=== PATIENT | female | born 1970 | race Caucasian/White ===

== ENCOUNTER 2017-03-04 10:57 | Day surgery (SDC) | payer BC, OTHER ==
--- NOTE | 2017-03-04 08:06 | HP ---
HISTORY AND PHYSICAL Date of 1970. CHIEF COMPLAINT: Left shoulder pain and stiffness. 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 It started after she suffered a left-sided cerebral vascular accident in October of 2016. She is having a difficult time raising her arm overhead. She is having significant pain and night symptoms. She has a history of right shoulder adhesive capsulitis that responded well to manipulation under anesthesia in June of this year. PAST MEDICAL HISTORY: Significant for type 2 diabetes, hypertension, and left-sided CVA. PAST SURGICAL HISTORY: Significant for tubal ligation, but tonsillectomy and previous right shoulder manipulation. CURRENT MEDICATIONS: Aspirin, Crestor, lisinopril, Neurontin, Norvasc, Zetia. ALLERGIES: SHE HAS ALLERGIES TO LIPITOR. FAMILY HISTORY: Significant for cancer and diabetes along with hypertension. SOCIAL HISTORY: Significant for previous tobacco use however she quit in October of this year. REVIEW OF SYSTEMS: Sixteen point review of systems otherwise reviewed and is noncontributory. PHYSICAL EXAMINATION: On examination, the patient is approximately 5 foot 6, 191 pounds of mesomorphic habitus. HEENT exam is nonfocal. Neck is supple. Active motion left shoulder. Forward elevation 85 degrees, external rotation with arm at side -10 degrees, internal rotation to the buttock passively forward elevate her to 95 degrees. Motor strength is 5 minus over 5 for abduction and external rotation. Neer sign is positive. Her distal neurovascular appears intact otherwise in the left upper extremity. X-rays of the left shoulder the office show maintained humeral head to acromial distance. IMPRESSION: 1. Left shoulder adhesive capsulitis. 2. Oko-[id number] diabetes. 3. History of left-sided cerebrovascular accident. RECOMMENDATIONS: I talked to the patient at length regarding her options. At this point, she is quite symptomatic. We will plan to proceed with manipulation under anesthesia with subacromial cortisone injection. We will have her start her formal therapy directly after the procedure. Risks and benefits were discussed at length in layman's terms. MMODL / IJN: [id number] /
[2017-03-04 11:34] LABS: Glucose,Whole Blood 139 mg/dL (75-99)
[2017-03-04] MEDS ORDERED: LACTATED RINGERS 1,000 ML IV ONE (11:34)
[2017-03-04] MEDS ORDERED: DEXAMETHASONE SOD PHOS (MDV) 100 MG/10 ML VIAL IV ONE (11:34)
[2017-03-04] MEDS ORDERED: LIDOCAINE 1% 20 ML VIAL (10MG/ML) FOR IV START INTRADERMA ONE (11:35)
[2017-03-04] MEDS ORDERED: ONDANSETRON 4 MG/2 ML VIAL IVP ONE (11:35)
[2017-03-04] MEDS ORDERED: PROPOFOL 10 MG/ML 20 ML VIAL IV ONE (12:34)
[2017-03-04] MEDS ORDERED: fentaNYL (PF) 50 MCG/ML 2 ML AMP ONE (12:34)
[2017-03-04] MEDS ORDERED: methylPREDNISolone ACETATE 80 MG/ML 1 ML VIAL INTRABURSA ONE (12:43)
[2017-03-04] MEDS ORDERED: BUPIVACAINE (PF) 0.25% 30 ML VIAL MISCELLANE ONE (12:44)
--- NOTE | 2017-03-04 12:46 | P.OP ---
Date of Procedure: 03/04/17 Preoperative Diagnosis: Left shoulder adhesive capsulitis Postoperative Diagnosis: Same Procedure(s) Performed: Left shoulder manipulation under anesthesia with subacromial cortisone injection Anesthesia: MAC Surgeon: Lonnie Estevez Estimated Blood Loss (ml): 0 Pathology: none sent Condition: stable Disposition: PACU Indications for Procedure: The patient's a 46-year-old female who presents with progressive left shoulder pain and stiffness after sustaining a stroke approximately 3 months ago. Clinically she is noted of evidence of adhesive capsulitis. A discussion of the risks and benefits of manipulation under anesthesia with subacromial cortisone injection was made with the patient. She opted to proceed. Risks of this procedure to include fracture, dislocation, possible tendon rerupture, possible recurrence of stiffness and need for subsequent procedures was discussed. Informed consent was obtained. Operative Findings: Significant adhesions Description of Procedure: The patient was brought to the recovery room, and after induction of IV sedation the left shoulder was then gently manipulated. First with her arm at her side is able to obtain full external rotation. Moderate adhesions were encountered. I then obtained full forward elevation. Again there were moderate adhesions. I felt there was adequate advent of passive motion at this point. The left posterior shoulder was prepped with ChloraPrep. 80 mg of Depo-Medrol along with 5 mL of 1/4% plain Marcaine was injected into the subacromial space. The patient was monitored until fully awake. No complications were incurred. There was no blood loss.
[2017-03-04 12:54] VITALS: TEMP 98
[2017-03-04] MEDS: HYDROmorphone 1 MG/ML 1 ML SYRINGE IVP ONE ×4 (12:55→13:25)
[2017-03-04] MEDS ORDERED: KETOROLAC 30 MG/ML 1 ML VIAL IVP ONE (13:05)
[2017-03-04 13:43] LABS: Glucose,Whole Blood 164 mg/dL (75-99)
[2017-03-04 13:56] VITALS: RESP 18
[2017-03-04 14:21] VITALS: BP 147/90; PULSE 86
== END 2017-03-04 14:35 | disposition home or self-care (01) ==
LOC: OR 10:57
PROVIDERS: ATTEND Orthopaedic Surgery
DX: M75.02 Adhesive capsulitis of left shoulder (principal); I69.854 Hemiplegia and hemiparesis following other cerebrovascular disease affecting left non-dominant side; I10 Essential (primary) hypertension; Z87.891 Personal history of nicotine dependence; E78.5 Hyperlipidemia, unspecified; E11.9 Type 2 diabetes mellitus without complications; Z79.4 Long term (current) use of insulin; M19.90 Unspecified osteoarthritis, unspecified site; Z79.82 Long term (current) use of aspirin; Z79.899 Other long term (current) drug therapy; Z88.8 Allergy status to other drugs, medicaments and biological substances
CPT/HCPCS: 20610; 23700; 84703; J1040; J2405; J3010; J1885; J1170; J1100; J2704

== ENCOUNTER → 2018-04-29 | Outpatient (CLI) | payer BC ==
--- NOTE | 2018-04-29 23:22 | MR ---
MR scan of the brain. History bilateral leg weakness. Falls. Comparison none. Technique Multiplanar multiecho imaging of the brain was performed with no contrast. FINDINGS: Ventricles have normal size. There is no mass effect nor midline shift. There is no sign of intracran ial hemorrhage. There are scattered areas of increased signal in the white matter of both cerebral he mispheres on the T2 and FLAIR images. Total numbers less than 10. These measure up to [address] is in the white matter right temporal lobe. There is no significant white matter signal abnormalit y adjacent to the ventricles. There is no evidence of a posterior fossa mass. There is 3 mm area of f ocal increased signal in the right side of the marck. Corpus callosum is intact. Sella turcica is inta ct. IMPRESSION: Scattered white matter signal changes probably due to microvascular ischemia. No evidence of cortical infarct.
== END | disposition home or self-care (01) ==
LOC: RADMRIMAIN 19:31
PROVIDERS: ATTEND Psychiatry & Neurology Neurology
DX: R90.89 Other abnormal findings on diagnostic imaging of central nervous system (principal); R29.898 Other symptoms and signs involving the musculoskeletal system; M47.812 Spondylosis without myelopathy or radiculopathy, cervical region; R29.6 Repeated falls; Z86.73 Personal history of transient ischemic attack (TIA), and cerebral infarction without residual deficits
CPT/HCPCS: 70551

== ENCOUNTER → 2021-08-30 | Outpatient (CLI) | payer BC ==
--- NOTE | 2021-09-03 12:20 | MM ---
Reason for Exam: Screening (asymptomatic). Last screening mammogram was performed 12 month(s) ago. Patient History: Menarche at age 15. First Full-Term at age 21. Hormonal Contraceptives, starting at age 18 for 3 years. Last menstrual period: 08/30/2021 Risk Values: Tash 5 year model risk: 0.7%. NCI Lifetime model risk: 6.7%. Prior Study Comparison: 02/13/2009 Bilateral Screening Mammogram, [facility]. 08/14/2020 Bilateral MG 3D screening mammo w/cad, [facility]. Tissue Density: There are scattered fibroglandular densities. Findings: Analyzed By CAD. No suspicious groups of microcalcifications, spiculated or lobular masses, architectural distortion or other secondary signs of malignancy are mammographically apparent. Overall Assessment: Benign, BI-RAD 2 Management: Screening Mammogram of both breasts in 1 year. A negative mammogram report should not preclude additional follow up of suspicious palpable abnormalities. Patient should continue monthly self breast exam. A clinical breast exam by your physician is recommended on an annual basis and results should be correlated with mammographic findings. Electronically signed and approved by: Ian Cabrera D.O. Radiologis
== END | disposition home or self-care (01) ==
LOC: RADMAMWWP 13:00
PROVIDERS: ATTEND Obstetrics & Gynecology
DX: Z12.31 Encounter for screening mammogram for malignant neoplasm of breast (principal)
CPT/HCPCS: 77063; 77067

== ENCOUNTER 2021-09-19 06:48 | Day surgery (SDC) | payer BC ==
[2021-09-14 16:16] VITALS: BMI 34.0
[~2021-09-19 06:48] MED LIST: LACTATED RINGERS 1,000 ML IV SCH
[2021-09-19 07:22] VITALS: TEMP 97
--- NOTE | 2021-09-19 07:36 | P.GSHP ---
History of Present Illness H&P Date: 09/19/21 CHIEF COMPLAINT: Colon screen HISTORY OF PRESENT ILLNESS: The patient is a 50-year-old female who presents for colon screen. Lower endoscopy was offered for further evaluation and management. PAST MEDICAL HISTORY: Please see list. PAST SURGICAL HISTORY: Please see list. MEDICATIONS: Please see list. ALLERGIES: Please see list. SOCIAL HISTORY: No illicit drug use FAMILY HISTORY: No reports of Crohn disease or ulcerative colitis. REVIEW OF ORGAN SYSTEMS: CONSTITUTIONAL: No reports of fevers or chills. PHYSICAL EXAM: VITAL SIGNS: Stable GENERAL: Well-developed pleasant in no acute distress. HEENT: No scleral icterus. Extraocular movements grossly intact. Moist buccal mucosa. NECK: Supple without lymphadenopathy. CHEST: Unlabored respirations. Equal bilateral excursions. CARDIOVASCULAR: Regular rate and rhythm. Distal 2+ pulses. ABDOMEN: Soft, nontender, nondistended. MUSCULOSKELETAL: No clubbing, cyanosis, or edema. ASSESSMENT: 1. Colon screen. PLAN: 1. Recommend proceeding with a lower endoscopy Past Medical History Past Medical History: CVA/TIA, Diabetes Mellitus, GERD/Reflux, Hyperlipidemia, Hypertension, Pneumonia Additional Past Medical History / Comment(s): Hx rapid heartbeat, all cardiac tests negative. 10/18/16 TIA, SOME LEFT SIDED WEAKNESS. USING A WALKER. Hx pneumonia 2009. History of Any Multi-Drug Resistant Organisms: None Reported Past Surgical History: Tonsillectomy, Tubal Ligation Additional Past Surgical History / Comment(s): Cyst on RIGHT thumb removed. Sebacceous cyst removed from knee.NECK SURGERY WITH HARWARE, EGD, RIGHT CARPAL TUNNEL RELEASE Past Anesthesia/Blood Transfusion Reactions: No Reported Reaction Smoking Status: Former smoker - Past Family History Brother(s) Family Medical History: Hypertension Additional Family Medical History / Comment(s): Brother at 37 yrs of age due to uncontrolled hypertension and intracranial bleed. Medications and Allergies Home Medications Medication Instructions Recorded Confirmed Type Aspirin 325 mg PO DAILY 03/04/17 09/19/21 History Ezetimibe [Zetia] 10 mg PO QAM 03/04/17 09/19/21 History Gabapentin [Neurontin] 800 mg PO TID 03/04/17 09/19/21 History Insulin Degludec [Tresiba 92 units SQ HS 03/04/17 09/19/21 History Flextouch U-200] Liraglutide [Victoza 3-Ike] 1.8 mg SQ QAM 03/04/17 09/19/21 History Rosuvastatin [Crestor] 10 mg PO HS 03/04/17 09/19/21 History amLODIPine [Norvasc] 5 mg PO QAM 03/04/17 09/19/21 History lisinopriL [Zestril] 5 mg PO QAM 03/04/17 09/19/21 History Empagliflozin/Metformin HCl 1 tab PO DAILY 09/14/21 09/19/21 History [Synjardy Xr 25-1,000 mg Tablet] Multivitamins, Thera [Multivitamin 1 tab PO DAILY 09/14/21 09/19/21 History (formulary)] Omeprazole [PriLOSEC] 20 mg PO AC-BRKFST 09/14/21 09/19/21 History clonazePAM [KlonoPIN] 0.5 mg PO BID PRN 09/14/21 09/19/21 History metFORMIN HCL 1,000 mg PO 1800 09/14/21 09/19/21 History Allergies Allergy/AdvReac Type Severity Reaction Status Date / Time adhesive tape Allergy RED SKIN Verified 09/19/21 07:15 atorvastatin [From Lipitor] Allergy Nausea & Verified 09/19/21 07:15 Vomiting Bee Stings Allergy Anaphylaxis Uncoded 09/19/21 07:15 Surgical - Exam Vital Signs Temp Pulse Resp BP Pulse Ox 97.0 F L 103 H 18 153/88 98 09/19/21 07:13 09/19/21 07:13 09/19/21 07:13 09/19/21 07:13 09/19/21 07:13
[2021-09-19 07:47] LABS: Glucose,Whole Blood 110 mg/dL (70-110)
[2021-09-19] MEDS ORDERED: PROPOFOL 10 MG/ML 20 ML VIAL IV ONE (08:10)
--- NOTE | 2021-09-19 08:31 | P.PCN ---
Date of Procedure: 09/19/21 Description of Procedure: PREOPERATIVE DIAGNOSIS: Colonoscopy screening. Family history colon cancer Family history colon polyps POSTOPERATIVE DIAGNOSIS: Colonoscopy screening. Family history colon cancer Family history colon polyps OPERATION: Colonoscopy to the cecum, ileocecal valve and appendiceal orifice. SURGEON: Tona Bush MD. ANESTHESIA: MAC. INDICATIONS: The patient is a 61-year-old female who presents for colonoscopy screening. Benefits and risks were described and informed consent was obtained. DESCRIPTION OF PROCEDURE: The patient had undergone Sutab prep. The patient had been brought into the operating room and laid in the left lateral decubitus position. After adequate i ntravenous sedation, the rectum was examined with 2% lidocaine jelly. No external hemorrhoids were encountered. The rectal tone was within normal limits. No lesions were palpated in the rectal vault. An Olympus colonoscope was advanced until the cecum, ileocecal valve and appendiceal orifice were clearly viewed. The prep was excellent. No scattered diverticulosis was encountered. No colonic polyps were found. No evidence of focal colitis was found. Retroflexion of the scope demonstrated grade 1 internal hemorrhoids without active bleeding or inflammation. The colon was desufflated. The patient had tolerated the procedure well. Withdrawal time was over 6 minutes. FINDINGS: Aronchick preparation quality scale 1 (1-5) Internal hemorrhoids, grade 1 No external prolapsed hemorrhoids. No arteriovenous malformations. No adenomatous polyps. No focal colitis. No sigmoid diverticulosis RECOMMENDATIONS: Lower endoscopy in 5 years, 2026 due to high risk family history Plan - Discharge Summary Discharge Rx Participant: No New Discharge Prescriptions: Continue Gabapentin [Neurontin] 800 mg PO TID Liraglutide [Victoza 3-Ike] 1.8 mg SQ QAM Ezetimibe [Zetia] 10 mg PO QAM amLODIPine [Norvasc] 5 mg PO QAM Rosuvastatin [Crestor] 10 mg PO HS lisinopriL [Zestril] 5 mg PO QAM Aspirin 325 mg PO DAILY Insulin Degludec [Tresiba Flextouch U-200 Pen] 92 units SQ HS metFORMIN HCL 1,000 mg PO 1800 clonazePAM [KlonoPIN] 0.5 mg PO BID PRN PRN Reason: Anxiety Omeprazole [PriLOSEC] 20 mg PO AC-BRKFST Empagliflozin/Metformin HCl [Synjardy Xr 25-1,000 mg Tablet] 1 tab PO DAILY Multivitamins, Thera [Multivitamin (formulary)] 1 tab PO DAILY Discharge Medication List Aspirin 325 mg PO DAILY 03/04/17 [History] Ezetimibe [Zetia] 10 mg PO QAM 03/04/17 [History] Gabapentin [Neurontin] 800 mg PO TID 03/04/17 [History] Insulin Degludec [Tresiba Flextouch U-200 Pen] 92 units SQ HS 03/04/17 [History] Liraglutide [Victoza 3-Ike] 1.8 mg SQ QAM 03/04/17 [History] Rosuvastatin [Crestor] 10 mg PO HS 03/04/17 [History] amLODIPine [Norvasc] 5 mg PO QAM 03/04/17 [History] lisinopriL [Zestril] 5 mg PO QAM 03/04/17 [History] Empagliflozin/Metformin HCl [Synjardy Xr 25-1,000 mg Tablet] 1 tab PO DAILY 09/14/21 [History] Multivitamins, Thera [Multivitamin (formulary)] 1 tab PO DAILY 09/14/21 [History] Omeprazole [PriLOSEC] 20 mg PO AC-BRKFST 09/14/21 [History] clonazePAM [KlonoPIN] 0.5 mg PO BID PRN 09/14/21 [History] metFORMIN HCL 1,000 mg PO 1800 09/14/21 [History] Follow up Appointment(s)/Referral(s): Tona Bush MD [STAFF PHYSICIAN] - As Needed Patient Instructions/Handouts: Colonoscopy (DC), *Surgery [facility] - (Anesthesia) Endoscopy Discharge Instructions Activity/Diet/Wound Care/Special Instructions: Repeat colonoscopy in 5 years, 2026 Discharge Disposition: HOME SELF-CARE
[2021-09-19 08:35] VITALS: RESP 16
[2021-09-19 08:46] VITALS: BP 117/77; PULSE 97
== END 2021-09-19 09:10 | disposition home or self-care (01) ==
LOC: ORWHC2ENDO 06:48
PROVIDERS: ATTEND Surgery Plastic and Reconstructive Surgery
DX: Z12.11 Encounter for screening for malignant neoplasm of colon (principal); K64.0 First degree hemorrhoids; Z83.71 Family history of colonic polyps; Z80.0 Family history of malignant neoplasm of digestive organs; E11.69 Type 2 diabetes mellitus with other specified complication; E78.5 Hyperlipidemia, unspecified; I10 Essential (primary) hypertension; K21.9 Gastro-esophageal reflux disease without esophagitis; Z86.73 Personal history of transient ischemic attack (TIA), and cerebral infarction without residual deficits; Z87.891 Personal history of nicotine dependence; Z82.49 Family history of ischemic heart disease and other diseases of the circulatory system; Z79.82 Long term (current) use of aspirin; Z79.899 Other long term (current) drug therapy; Z79.4 Long term (current) use of insulin; Z88.8 Allergy status to other drugs, medicaments and biological substances; Z91.030 Bee allergy status; Z91.09 Other allergy status, other than to drugs and biological substances
CPT/HCPCS: 84703; 45378; J2704

== ENCOUNTER → 2022-09-02 | Outpatient (CLI) | payer BC ==
--- NOTE | 2022-09-03 09:20 | MM ---
Reason for Exam: Screening (asymptomatic). Last screening mammogram was performed 12 month(s) ago. Patient History: Menarche at age 15. First Full-Term at age 21. Hormonal Contraceptives, starting at age 18 for 3 years. Risk Values: Tash 5 year model risk: 0.7%. NCI Lifetime model risk: 6.6%. Prior Study Comparison: 02/13/2009 Bilateral Screening Mammogram, [facility]. 08/14/2020 Bilateral MG 3D screening mammo w/cad, [facility]. 08/30/2021 Bilateral MG 3D screening mammo w/cad, [facility]. Tissue Density: There are scattered fibroglandular densities. Findings: Analyzed By CAD. There are a few benign-appearing small round calcifications redemonstrated throughout the bilateral breasts. There is no suspicious group of microcalcifications or new suspicious mass in either breast. Overall Assessment: Benign, BI-RAD 2 Management: Screening Mammogram of both breasts in 1 year. . Patient should continue monthly self-breast exams. A clinical breast exam by your physician is recommended on an annual basis. This exam should not preclude additional follow-up of suspicious palpable abnormalities. Note on Tash scores and lifetime risk: 1. A Tash score greater than 3% is considered moderate risk. If this is the case, consider specialist referral to assess eligibility for a risk reducing agent. 2. If overall lifetime risk for the development of breast cancer is 20% or higher, the patient may qualify for future screening with alternating mammogram and breast MRI. Electronically signed and approved by: Carlton Ken M.D.
== END | disposition home or self-care (01) ==
LOC: RADMAMWWP 16:40
PROVIDERS: ATTEND Family Medicine
DX: Z12.31 Encounter for screening mammogram for malignant neoplasm of breast (principal); Z78.0 Asymptomatic menopausal state
CPT/HCPCS: 77063; 77067

== ENCOUNTER → 2023-06-26 | Outpatient (CLI) | payer BC ==
--- NOTE | 2023-06-28 14:29 | CT ---
EXAMINATION TYPE: CT brain wo con CT DLP: 1072.30 mGycm, Automated exposure control for dose reduction was used. DATE OF EXAM: 06/26/2023 4:56 PM COMPARISON: MRI brain 04/29/2018. CLINICAL INDICATION:Female, 52 years old with history of R53.83 OTHER FATIGUE, headache, dizziness, f atigue, off balance. hx of stroke. TECHNIQUE: Brain: Axial CT images of the brain were obtained with coronal and sagittal reformats created and rev iewed. Contrast used: None. Oral contrast used: None. FINDINGS: Extra-axial spaces: No abnormal extra-axial fluid collections. Basilar cisterns are patent. Ventricular system: Within normal limits. Cerebral parenchyma: No increased attenuation to suggest acute intraparenchymal hemorrhage. The gra y-white matter interface appears maintained. No significant atrophy. White matter unremarkable by C T. Cerebellum: No acute abnormality. Mass effect: No evidence of mass effect or midline shift. Intracranial vasculature: Calcifications of the cavernous portions of the ICAs at the skull base. Soft tissues: No acute or concerning abnormality. Visualized orbits: Orbital contents appear grossly intact. Calvarium/osseous structures: No evidence of calvarial fracture. Paranasal sinuses and mastoid air cells: Clear. Mild nasal septal deviation to the left. MRI is more sensitive for detecting acute processes such as infarct, and may be considered if clinica lly warranted. IMPRESSION: No acute intracranial CT abnormality.
== END | disposition home or self-care (01) ==
LOC: RADCTMAIN 16:34
PROVIDERS: ATTEND Family Medicine
DX: R53.83 Other fatigue (principal)
CPT/HCPCS: 70450